=== PATIENT | female | born 1995 | race Caucasian/White ===

== ENCOUNTER 2018-07-24 01:35 | Emergency (ER) | payer OTHER ==
[~2018-07-24] VITALS: Ht 167.6 cm; Wt 99.8 kg
[2018-07-24] MEDS ORDERED: NOHOMEMEDICATIONS (01:46)
[2018-07-24 02:57] LABS: ABSOLUTE BASOPHILS 0.1 thou/uL (0.0-0.2); ABSOLUTE EOSINOPHILS 0.1 thou/uL (0.0-0.7); ABSOLUTE LYMPHOCYTES 3.4 thou/uL (0.8-5.3); ABSOLUTE MONOCYTES 0.9 thou/uL (0.0-1.2); ABSOLUTE NEUTROPHILS 8.4 thou/uL (1.6-8.1); BASOPHILS 0.5 %; EOSINOPHILS 1.1 %; HEMATOCRIT 41.9 % (37.0-47.0); HEMOGLOBIN 13.8 gm/dL (12.0-15.0); LYMPHOCYTES 26.8 %; MCH 27.8 pg (26.0-34.0); MCV 84.3 fL (80.0-100.0); MONOCYTES 6.8 %; MPV 10.5 fl. (7.2-11.1); NUCLEATED RBCS 0 /100WBC; PLATELET COUNT* 233 thou/uL (150-400); POLYS 64.8 %; RBC 4.97 mil/uL (4.20-5.00); RDW-CV 13.5 % (10.5-14.5); WBC 12.9 thou/uL (4.0-11.0)
[2018-07-24 03:01] LABS: CALCIUM 8.6 mg/dL (8.5-10.1); CREATININE 0.9 mg/dL (0.6-1.3); POTASSIUM 3.7 mmol/L (3.5-5.1)
[2018-07-24 03:02] LABS: URINE BILIRUBIN NEGATIVE (Negative); URINE BLOOD 3+ (Negative); URINE CLARITY CLEAR; URINE COLOR YELLOW; URINE GLUCOSE-RANDOM NEGATIVE (Negative); URINE KETONES NEGATIVE (Negative); URINE LEUKOCYTES-REFLEX NEGATIVE (Negative); URINE NITRITE-REFLEX NEGATIVE (Negative); URINE PROTEIN NEGATIVE (Negative); URINE SPECIFIC GRAVITY 1.025 (1.005-1.030); URINE UROBILINOGEN 0.2 E.U./dl (0.2-1.0)
[2018-07-24 03:11] LABS: ALBUMIN 4.1 g/dL (3.4-5.0); TOTAL BILIRUBIN 0.3 mg/dL (<0.1-1.0); TOTAL PROTEIN 8.2 g/dL (6.4-8.2)
[2018-07-24 03:25] LABS: SQUAMOUS 4-10 Moderate /LPF (0-3)
[2018-07-24 03:26] LABS: HYALINE CASTS 0-3 Few /LPF (None Seen)
[2018-07-24 03:27] LABS: URINE RBC >20 Many /HPF (0-2); URINE WBC-REFLEX 6-15 Few /HPF (0-5)
[2018-07-24 03:28] LABS: CRYSTALS None Seen /LPF (None Seen); FINE GRANULAR CASTS 0-3 Few /LPF (None Seen)
[2018-07-24] MEDS ORDERED: ZOFRAN ODT4 MG PO (05:57)
[2018-07-24] MEDS ORDERED: NORCO 5-325 TA1 EACH PO (05:57)
[2018-07-24] MEDS ORDERED: FLOMAX0.4 MG PO (05:57)
[2018-07-24 06:30] VITALS: BP 109/61
== END 2018-07-24 06:31 | disposition home or self-care (01) ==
LOC: M.ERS 01:35
PROVIDERS: Personal Emergency Response Attendant
DX: N23 Unspecified renal colic (principal); R11.2 Nausea with vomiting, unspecified; Z88.2 Allergy status to sulfonamides; Z88.8 Allergy status to other drugs, medicaments and biological substances; Z87.442 Personal history of urinary calculi